=== PATIENT | female | born 1985 | race Caucasian/White ===

== ENCOUNTER → 2016-08-24 | Outpatient (CLI) | payer OTHER ==
[~2016-08-24] MED LIST: BIRTH CONRTOL; DOCU50CA4 PO; IBUP-15 PO; LANS30CA PO; NORE0.353 PO; ONDAN4ODT PO; OXYC1TAB87 PO; PREN1TAB71 PO; TAMS-8 PO; [UNRECOGNIZED DRUG - REMARK]; prenatal
[2016-08-24 11:44] VITALS: BP 121/83
--- NOTE | 2016-08-24 11:44 | Urgent Care T Sheet Gen (E) ---
Intake General Temperature (Fahrenheit): 97.3 Pulse: 89 Blood Pressure Systolic: 121 Blood Pressure Diastolic: 83 Respirations: 18 SPO2: 99 Description of Symptoms Patient presents complaining of a rash to the hands, forearms and ankles. Rash was first noticed on Tuesday. Started on dorsal hands and has worsened since. Patient states the rash is red bumps, consistent with mosquito bites. States they itch but don't drain. Patient and her family just moved to a new house. She got a bed frame and mattress off of [employer]. Her cleaned it and their first night using the bed was Tuesday. Bumps were noticed soon after. Her hasn't noticed any bites however the patient states "I get bit all the time and my gets nothing". The patient has been putting calamine lotion on the bumps however it doesn't help. she is 9 weeks , which complicates things. Her boss wanted to make sure she didn't have scabies. History of Present Illness Allergies: Coded Allergies: No Known Drug Allergies (Unverified , 01/03/16) Home Meds Active Scripts Ondansetron HCl (Zofran ODT)4 Mg Tab.rapdis4 Mg PO Q4H PRN nausea #20 TAB Ref 0 Prov:TIAN KATE MD 01/03/16 Oxycodone HCl/Acetaminophen (Percocet 5mg/325mg)1 Tab Tablet1-2 Tab PO Q4H PRN PAIN #20 TAB Ref 0 Prov:TIAN KATE MD 01/03/16 Tamsulosin HCl (Flomax)0.4 Mg Cap0.4 Mg PO DAILY Bph #7 CAP Ref 0 Prov:TIAN KATE MD 01/03/16 Reported Medications [ Conrtol] No Conflict CheckUnknown Dose DAILY 01/03/16 Ibuprofen (Motrin IB)200 Mg [id number] Mg PO Q6H PRN 09/12/13 Respiratory Constitutional Symptoms: No syptoms reported EENTM: No symptoms reported Respiratory: No symptoms reported Cardiovascular: No symptoms reported Estimated Date of Delivery: 09/24/13 Skin: Rash All Other Systems Reviewed Remaining Systems: All other systems reviewed with negative findings Past [id number]-[id number] Hx Patient's Social History Alcohol Use: Denies Use Smoking Status: Current every day smoker Surgeries/Hospitalizations Hospitalization/Surgery Hx: E[facility] Stone extraction oral surgery Respiratory Respiratory History: None Cardiovascular Cardiovascular History: None Reproductive System : 4 Abortions: 1 Living Children: 2 HIV/AIDS: Negative Sexually Transmitted Diseases: No Gastrointestinal GI/Endocrine History: None Diabetes Diabetes: No HEENT Impaired Vision: Glasses Hearing Impaired: None Psychosocial Behavior Disorders: None Physical Exam Physical Exam General Appearance: WD/WN No apparent distress Skin Exam: Rash (red papules noted along the dorsum of both hands, intermittently up the forearms and a few on the ankles. the papules are not seen along skin which is covered by clothes (upper arms, torso, legs). papules are not warm. they are blanchable. most are pea sized or slightly larger.) Departure Urgent Care Impression Impression: Primary Impression: Bed bug bite Qualified Code: W57.XXXA - Bitten or stung by nonvenomous insect and other nonvenomous arthropods, initial encounter Departure Disposition: 01 HOME OR SELF-CARE Condition: Stable Referrals: REJI LYNCH MD (PCP) Additional Instructions: The patient's bites appear to be from bed bugs. Her complicates things since I'm not able to treat with Prednisone. I instructed her to clean all her bedding. I'm not sure if this came from her new mattress or bedding. She is to take Claritin during the day and Benadryl at night for the itching. Since she is , I can't treat with Triamcinolone 1% but I did suggest she use OTC hydrocortisone cream (which is less potent) and only spot apply to her hands, which are the most itchy. She may return to work without issue. It's not scabies which is what her boss was concerned about. Return as needed Patient understands DC instructions. All questions were answered. End of report . LAMONT CARUSO Aug 24, 2016 11:10
== END ==
LOC: MHUC 09:58
PROVIDERS: ATTEND Physician Assistant
DX: S60.562A Insect bite (nonvenomous) of left hand, initial encounter (principal); S60.561A Insect bite (nonvenomous) of right hand, initial encounter; S50.862A Insect bite (nonvenomous) of left forearm, initial encounter; S50.861A Insect bite (nonvenomous) of right forearm, initial encounter; S90.562A Insect bite (nonvenomous), left ankle, initial encounter; S90.561A Insect bite (nonvenomous), right ankle, initial encounter; W57.XXXA Bitten or stung by nonvenomous insect and other nonvenomous arthropods, initial encounter
CPT/HCPCS: 99212